=== PATIENT | female | born 1945 | race Caucasian/White ===

== ENCOUNTER → 2019-09-26 11:08 | Outpatient (CLI) | payer MEDICARE, OTHER, SELFPAY ==
--- NOTE | ~2019-09-26 | DEXA_ITS ---
Bone Density Report Name: Renea Garnett Age: 73 Sex: Female Ethnicity: White Date of : 1945 Indication: postmenopausal; screening for osteoporosis; hysterectomy; Referring Provider: CLINT, FLORESITA Study: Bone densitometry was performed. Exam Date: September 26, 2019 Accession number: [id number] Bone Density: Region BMD T-score Z-score Classification AP Spine (L1-L4) 1.061 0.1 2.5 Normal Femoral Neck (Left) 0.733 -1.0 1.0 Normal Total Hip (Left) 0.906 -0.3 1.4 Normal Femoral Neck (Right) 0.716 -1.2 0.8 Osteopenia Total Hip (Right) 0.849 -0.8 1.0 Normal Total Hip Mean 0.878 -0.6 1.2 Normal World Health Organization criteria for BMD impression classify patients as: Normal (T-score at or above -1.0), Osteopenia (T-score between -1.0 and -2.5), or Osteoporosis (T-score at or below -2.5). 10-year Fracture Risk(1): Major Osteoporotic Fracture 9.9% Hip Fracture 1.6% Reported Risk Factors: [place] (), Neck BMD=0.716, BMI=23.8 (1) FRAX(R) Version 3.08. Fracture probability calculated for an untreated patient. Fracture probability may be lower if the patient has received treatment. Previous Exams: Region Exam Age BMD T-score BMD Change BMD Change Date g/cm2 vs Baseline vs Previous AP Spine(L1-L4) 09/26/2019 73 1.061 0.1 -0.028* -0.011 05/27/2014 68 1.072 0.2 -0.017 0.012 05/12/2011 65 1.060 0.1 -0.029* 0.050* 06/19/2008 62 1.010 -0.3 -0.080* -0.080* 04/13/2005 59 1.089 0.4 Total Hip(Left) 09/26/2019 73 0.906 -0.3 -0.085* -0.023 05/27/2014 68 0.929 -0.1 -0.062* 0.003 05/12/2011 65 0.926 -0.1 -0.066* -0.037* 06/19/2008 62 0.963 0.2 -0.028* -0.028* 04/13/2005 59 0.991 0.4 Total Hip(Right) 09/26/2019 73 0.849 -0.8 -0.110* -0.068* 05/27/2014 68 0.917 -0.2 -0.042* 0.014 05/12/2011 65 0.903 -0.3 -0.056* -0.004 06/19/2008 62 0.907 -0.3 -0.052* -0.052* 04/13/2005 59 0.959 0.1 *Denotes significance at 95% confidence level, LSC for AP Spine = 0.022 g/cm2, LSC for Total Hip = 0.027 g/cm2 Clinical Information Provided by Patient: Has used the following medications: Vitamin D, Calcium Has the following medical conditions: Hysterectomy Patient maximum height was 67 Menopause Age: 50 Does not regularly consum
== END ==
PROVIDERS: Visit Provider Nurse Practitioner
DX: Z78.0 Asymptomatic menopausal state (principal); M85.851 Other specified disorders of bone density and structure, right thigh
CPT/HCPCS: 77080

== ENCOUNTER → 2019-11-06 12:21 | Outpatient (CLI) | payer MEDICARE, OTHER, SELFPAY ==
--- NOTE | ~2019-11-06 | MM_ITS ---
EXAMINATION: MM screening [facility] BI w nati HISTORY: Screening mammogram TECHNIQUE: Craniocaudal and mediolateral oblique 3-D tomosynthesis images were obtained and synthetic 2-D images were generated. CAD analysis was submitted and interpreted. COMPARISON: 06/15/2018, 06/10/2017, 06/08/2016 bilateral digital screening mammogram examinations BREAST PARENCHYMAL COMPOSITION: There are scattered areas of fibroglandular density. FINDINGS: There is no evidence of suspicious mass, calcification, or architectural distortion to sugg est malignancy in either breast. There has been no suspicious interval change. IMPRESSION: 1. No mammographic evidence of malignancy. 2. Recommend routine screening mammography in one year. BI-RADS Category 1: Negative Reviewed, dictated and finalized at location A.
== END ==
PROVIDERS: Visit Provider Nurse Practitioner
DX: Z12.31 Encounter for screening mammogram for malignant neoplasm of breast (principal)
CPT/HCPCS: 77063; 77067

== ENCOUNTER → 2020-10-24 11:04 | Outpatient (CLI) | payer MEDICARE, OTHER, SELFPAY ==
--- NOTE | ~2020-10-24 | US_ITS ---
EXAMINATION: US pelvic complete w TV DATE: 10/24/2020 11:30 INDICATION: Left lower quadrant mass seen on outside hospital CT TECHNIQUE: Multiple transabdominal and endovaginal sonographic images of the pelvis were obtained. COMPARISON: None. FINDINGS: The uterus is surgically absent. The right ovary is not visualized however no right adnexal abnormality is seen. The left ovary measures 6.4 x 4.3 x 4.8 cm. There are multiple cystic areas of the left ovary. Some appear to demonstrate internal solid components. There is normal vascular flow i n the left ovary. There is no free fluid in the pelvis. IMPRESSION: 1. Complex cystic lesion of the left adnexa which may be benign or malignant. Recommend surgical eval uation or further evaluation by MRI without and with contrast. Reviewed, dictated and finalized at location B. IMPRESSION: 1. Complex cystic lesion of the left adnexa which may be benign or malignant. R ecommend surgical evaluation or further evaluation by MRI without and with cont rast.
== END ==
PROVIDERS: Visit Provider Obstetrics & Gynecology Gynecology
DX: R19.04 Left lower quadrant abdominal swelling, mass and lump (principal)
CPT/HCPCS: 76830; 76856

== ENCOUNTER → 2020-11-06 10:02 | Outpatient (CLI) | payer MEDICARE, OTHER, SELFPAY ==
--- NOTE | ~2020-11-06 | MM_ITS ---
EXAMINATION: MM screening [facility] BI w nati HISTORY: Screening mammogram TECHNIQUE: Craniocaudal and mediolateral oblique 3-D tomosynthesis images were obtained and synthetic 2-D images were generated. CAD analysis was submitted and interpreted. COMPARISON: 11/06/2019, 06/15/2018, 06/10/2017 bilateral digital screening mammogram examinations BREAST PARENCHYMAL COMPOSITION: There are scattered areas of fibroglandular density. FINDINGS: There is no evidence of suspicious mass, calcification, or architectural distortion to sugg est malignancy in either breast. There has been no suspicious interval change. IMPRESSION: 1. No mammographic evidence of malignancy. 2. Recommend routine screening mammography in one year. BI-RADS Category 1: Negative Reviewed, dictated and finalized at location A.
== END ==
PROVIDERS: Visit Provider Nurse Practitioner
DX: Z12.31 Encounter for screening mammogram for malignant neoplasm of breast (principal)
CPT/HCPCS: 77063; 77067

== ENCOUNTER → 2020-11-21 10:11 | Outpatient (CLI) | payer MEDICARE, OTHER, SELFPAY ==
--- NOTE | ~2020-11-21 | US_ITS ---
EXAMINATION: US transvaginal DATE: 11/21/2020 10:39 INDICATION: Left ovarian cyst. TECHNIQUE: Multiple transvaginal sonographic images of the pelvis were obtained. COMPARISON: Ultrasound pelvis 10/24/2020 FINDINGS: The uterus is absent. There is no free fluid in the pelvis. The right ovary is not visualized. There is a 5.7 x 4.2 x 4.1 cm cystic and solid mass in left adnexa with multiple cysts measuring up to 2.9 cm. IMPRESSION: 1. 5.7 cm mixed cystic and solid mass in left adnexa, stable from 10/24/2020. This finding is suspicio us for neoplasm. Consider pelvis MRI without and with contrast or surgical evaluation. Reviewed, dictated and finalized at location A. IMPRESSION: 1. 5.7 cm mixed cystic and solid mass in left adnexa, stable from 10/24/2020. Th is finding is suspicious for neoplasm. Consider pelvis MRI without and with con trast or surgical evaluation.
== END ==
PROVIDERS: Visit Provider Obstetrics & Gynecology Gynecology
DX: N83.202 Unspecified ovarian cyst, left side (principal); N83.8 Other noninflammatory disorders of ovary, fallopian tube and broad ligament
CPT/HCPCS: 76830

== ENCOUNTER → 2021-11-13 12:32 | Outpatient (CLI) | payer MEDICARE, OTHER, SELFPAY ==
--- NOTE | ~2021-11-13 | MM_ITS ---
EXAMINATION: MM screening [facility] BI w nati HISTORY: Screening mammogram TECHNIQUE: Craniocaudal and mediolateral oblique 3-D tomosynthesis images were obtained and synthetic 2-D images were generated. CAD analysis was submitted and interpreted. COMPARISON: 11/06/2020, 11/06/2019, 06/15/2018 bilateral screening mammogram examinations BREAST PARENCHYMAL COMPOSITION: There are scattered areas of fibroglandular density. FINDINGS: There is no evidence of suspicious mass, calcification, or architectural distortion to sugg est malignancy in either breast. There has been no suspicious interval change. IMPRESSION: 1. No mammographic evidence of malignancy. 2. Recommend routine screening mammography in one year. BI-RADS Category 1: Negative Reviewed, dictated and finalized at location A.
== END ==
PROVIDERS: PCP Internal Medicine Rheumatology; Visit Provider Nurse Practitioner
DX: Z12.31 Encounter for screening mammogram for malignant neoplasm of breast (principal)
CPT/HCPCS: 77063; 77067

== ENCOUNTER → 2022-12-15 12:02 | Outpatient (CLI) | payer MEDICARE, OTHER, SELFPAY ==
--- NOTE | ~2022-12-15 | MM_ITS ---
EXAMINATION: MM screening [facility] BI w nati HISTORY: Screening mammogram TECHNIQUE: Craniocaudal and mediolateral oblique 3-D tomosynthesis images were obtained and synthetic 2-D images were generated. CAD analysis was submitted and interpreted. COMPARISON: 11/13/2021, 11/06/2020, 11/06/2019 BREAST PARENCHYMAL COMPOSITION: There are scattered areas of fibroglandular density. FINDINGS: No suspicious mass, calcification, or architectural distortion are identified in either alicia ast to suggest malignancy. There has been no suspicious interval change. IMPRESSION: 1. No mammographic evidence of malignancy. 2. Recommend routine screening mammography in one year. BI-RADS Category 1: Negative Reviewed, dictated and finalized at location A.
== END ==
PROVIDERS: PCP Internal Medicine Rheumatology; Visit Provider Nurse Practitioner
DX: Z12.31 Encounter for screening mammogram for malignant neoplasm of breast (principal)
CPT/HCPCS: 77063; 77067

== ENCOUNTER → 2023-02-24 13:18 | Outpatient (CLI) | payer MEDICARE, OTHER, SELFPAY ==
--- NOTE | ~2023-02-24 | DEXA_ITS ---
Bone Density Report Name: ERIC FUENTES Age: 77 Sex: Female Ethnicity: White Date of : 1945 Indication: postmenopausal; screening for osteoporosis; height loss; hysterectomy; Referring Provider: CLINT, FLORESITA Study: Bone densitometry was performed. Exam Date: February 24, 2023 Accession number: [id number] Bone Density: Region BMD T-score Z-score Classification AP Spine (L1-L4) 1.047 0.0 2.5 Normal Femoral Neck (Left) 0.721 -1.2 1.0 Osteopenia Total Hip (Left) 0.884 -0.5 1.4 Normal Femoral Neck (Right) 0.709 -1.3 0.9 Osteopenia Total Hip (Right) 0.832 -0.9 1.0 Normal Total Hip Mean 0.858 -0.7 1.2 Normal World Health Organization criteria for BMD impression classify patients as: Normal (T-score at or above -1.0), Osteopenia (T-score between -1.0 and -2.5), or Osteoporosis (T-score at or below -2.5). 10-year Fracture Risk(1): Major Osteoporotic Fracture 11% Hip Fracture 2.1% Reported Risk Factors: [place] (), Neck BMD=0.709, BMI=23.5 (1) FRAX(R) Version 3.08. Fracture probability calculated for an untreated patient. Fracture probability may be lower if the patient has received treatment. Previous Exams: Region Exam Age BMD T-score BMD Change BMD Change Date g/cm2 vs Baseline vs Previous AP Spine(L1-L4) 02/24/2023 77 1.047 0.0 -0.043* -0.015 09/26/2019 73 1.061 0.1 -0.028* -0.011 05/27/2014 68 1.072 0.2 -0.017 0.012 05/12/2011 65 1.060 0.1 -0.029* 0.050* 06/19/2008 62 1.010 -0.3 -0.080* -0.080* 04/13/2005 59 1.089 0.4 Total Hip(Left) 02/24/2023 77 0.884 -0.5 -0.107* -0.022 09/26/2019 73 0.906 -0.3 -0.085* -0.023 05/27/2014 68 0.929 -0.1 -0.062* 0.003 05/12/2011 65 0.926 -0.1 -0.066* -0.037* 06/19/2008 62 0.963 0.2 -0.028* -0.028* 04/13/2005 59 0.991 0.4 Total Hip(Right) 02/24/2023 77 0.832 -0.9 -0.127* -0.017 09/26/2019 73 0.849 -0.8 -0.110* -0.068* 05/27/2014 68 0.917 -0.2 -0.042* 0.014 05/12/2011 65 0.903 -0.3 -0.056* -0.004 06/19/2008 62 0.907 -0.3 -0.052* -0.052* 04/13/2005 59 0.959 0.1 *Denotes significance at 95% confidence level, LSC for AP Spine = 0.022 g/cm2, LSC for Total Hip = 0.027 g/cm2 Clinical Information Provided by Patient:
== END ==
PROVIDERS: PCP Internal Medicine Rheumatology; Visit Provider Nurse Practitioner
DX: Z78.0 Asymptomatic menopausal state (principal); M85.89 Other specified disorders of bone density and structure, multiple sites
CPT/HCPCS: 77080

== ENCOUNTER 2023-12-21 12:39 | Outpatient (CLI) | payer MEDICARE, OTHER, SELFPAY ==
--- NOTE | ~2023-12-21 | MM_ITS ---
EXAMINATION: MM screening [facility] BI w nati HISTORY: Screening TECHNIQUE: Craniocaudal and mediolateral oblique 3-D tomosynthesis images were obtained and synthetic 2-D images were generated. CAD analysis was submitted and interpreted. COMPARISON: Comparison to multiple prior studies sequentially, with oldest reviewed study dated 06/10. BREAST PARENCHYMAL COMPOSITION: Not dense: There are scattered areas of fibroglandular density. FINDINGS: There is no evidence of suspicious mass, calcification, or architectural distortion to sugg est malignancy in either breast. There has been no suspicious interval change. IMPRESSION: 1. No mammographic evidence of malignancy. 2. Recommend routine screening mammography in one year. BI-RADS Category 1: Negative Reviewed, dictated and finalized at location B. O NURSE
== END 2023-12-21 12:40 | disposition home or self-care (01) ==
LOC: MICIMG 12:41
PROVIDERS: PCP Nurse Practitioner; Visit Provider Nurse Practitioner
DX: Z12.31 Encounter for screening mammogram for malignant neoplasm of breast (principal)
CPT/HCPCS: 77063; 77067

== ENCOUNTER 2024-12-24 12:20 | Outpatient (CLI) | payer MEDICARE, OTHER, SELFPAY ==
--- NOTE | ~2024-12-24 | MM_ITS ---
EXAMINATION: MM screening [facility] BI w nati HISTORY: Screening TECHNIQUE: Craniocaudal and mediolateral oblique 3-D tomosynthesis images were obtained and synthetic 2-D images were generated. CAD analysis was submitted and interpreted. COMPARISON: Comparison to multiple prior studies sequentially, with oldest reviewed study dated 06/15/2018. BREAST PARENCHYMAL COMPOSITION: Not dense: There are scattered areas of fibroglandular density. FINDINGS: There is no evidence of suspicious mass, calcification, or architectural distortion to suggest malignancy in either breast. There has been no suspicious interval change. IMPRESSION: 1. No mammographic evidence of malignancy. 2. Recommend routine screening mammography in one year. BI-RADS Category 1: Negative Reviewed, dictated and finalized at location B. STANT DEAN
== END 2024-12-24 12:21 | disposition home or self-care (01) ==
LOC: MICIMG 12:22
DX: Z12.31 Encounter for screening mammogram for malignant neoplasm of breast (principal)
CPT/HCPCS: 77063; 77067

== ENCOUNTER 2025-02-06 13:17 | Emergency (ER) | payer MEDICARE, OTHER, SELFPAY ==
--- NOTE | 2025-02-06 13:23 | ED_ITS ---
HPI - URI/Sore Throat General Chief Complaint: Upper Respiratory Infection Stated Complaint: Body aches, Head ache Time Seen by Provider: 02/06/25 13:32 Source: patient, RN notes reviewed and old records reviewed Mode of arrival: ambulatory Limitations: no limitations History of Present Illness HPI Narrative: 79-year-old female presents to the [facility] with complaints of cough, body aches and headache that started yesterday, worse when she woke up this morning. Patient states that she went to a [employer] then came here to be evaluated. Patient reports that she did have her flu shot this past fall. Had taken Benadryl Related Data Home Medications ?Medication ?Instructions ?Recorded ?Confirmed ?Last Taken ?Type amiodarone 200 mg tablet mg 02/06/25 Unknown History ergocalciferol (vitamin D2) 1,250 02/06/25 Unknown H istory mcg (50,000 unit) capsule levothyroxine 50 mcg tablet mcg 02/06/25 Unknown Hist ory metoprolol tartrate 50 mg tablet mg 02/06/25 Unknown History rivaroxaban 20 mg tablet (Xarelto) mg 02/06/25 Unknow n History valsartan 80 mg tablet mg 02/06/25 Unknown History Allergies Allergy/AdvReac Type Severity Reaction Status Date / Time No Known Allergies Allergy Verified 02/06/25 13:45 Review of Systems Review of Systems: All systems reviewed & are unremarkable except as noted in HPI and below Constitutional: Constitutional: Reports as per HPI, Reports body ache(s) and Reports headache(s) ENT: Reports system reviewed and no additional complaints, except as documented Cardiovascular: Cardiovascular: Reports no additional cardiovascular complaints, Denies chest pain and Denies dyspnea Respiratory: Respiratory: Reports as per HPI, Denies chest congestion, Reports cough and Denies dyspnea Musculoskeletal: Musculoskeletal: Reports no additional musculoskeletal complaints Integumentary/Breasts: Skin/Breast: Reports system reviewed and no additional complaints, except as docu PMFSH Comments At the time of my signature, I reviewed and agree with the nursing past medical, surgical, social, and family history. There is no relevant family history pertinent to the patient complaint. Exam Const: General: cooperative, healthy appearing, comfortable, no acute distress, well developed, alert and well nourished Nutritional Appearance: well nourished Orientation/consciousness: patient oriented x3 Limitations: no limitations HENMT: Head: normal to inspection Ears: hearing grossly normal bilaterally, external ears normal, TM's normal bilaterally, EAC's normal, mastoids normal and no periauricular adenopathy Face and sinus: normal facial exam and face symmetric Mouth: Yes Normal oral and palatal mucosa present, Yes lip normal, Yes tongue normal and Yes moist mucous membranes Throat: posterior oropharynx normal, uvula midline and no uvular edema Eyes: General: appearance normal, both eyes and all related structures Alignment and Position: alignment normal Neck: Neck: normal visual inspection, full ROM, no lymphadenopathy and no meningeal signs Chest: Chest palpation & inspection: normal inspection of the chest Resp: Effort & Inspection: normal respiratory effort and able to speak in complete sentences Auscultation: clear to auscultation bilaterally, no crackles, no rales, no rhonchi and no wheezes Cardio: Rate: regular rate Skin: General skin exam: normal color and no rashes or lesions noted Neuro: General: patient oriented x3, gait normal, moves all extremities and no meningeal signs Cognition (Neuro): normal cognition Speech: normal speech Gait exam (Neuro): Normal gait present Extrem: General: normal to inspection, full ROM, capillary refill normal and normal gait Psych: Appearance: grossly normal and well kempt Mental Status: mental status grossly normal Speech and movement: Normal speech and movement present and Clear speech present Affect: normal affect Attitude: cooperative Course Course Level of Care: Express Care Visit Vital Signs Vital signs: Vital Signs Temperature 99.1 F 02/06/25 13:34 Pulse Rate 101 H 02/06/25 13:34 Respiratory Rate 18 02/06/25 13:34 Blood Pressure 136/76 02/06/25 13:34 Pulse Oximetry 99 02/06/25 13:34 Oxygen Delivery Room Air 02/06/25 13:34 Temperature 99.1 F 02/06/25 13:34 Pulse Rate 101 H 02/06/25 13:34 Respiratory Rate 18 02/06/25 13:34 Blood Pressure 136/76 02/06/25 13:34 Pulse Oximetry 99 02/06/25 13:34 Oxygen Delivery Room Air 02/06/25 13:34 reviewed MDM MDM Narrative Medical decision making narrative: Patient sitting in exam room. Patient is nontoxic, vitals stable. Patient with 1 day history of body aches, headache and a cough. No acute findings noted on exam. Patient is flu A positive. Patient is appropriate for outpatient treatment with close follow-up Discharge instructions reviewed with patient, as well as provided in writing per nursing staff. The instructions also include specific and strict return/GO TO THE ER as well as f/u information. All questions have been answered, and the patient deny any further questions with discharge and discharge plan. Some parts of this dictation were generated by voice recognition software and may contain typographical and/or grammatical inaccuracies. Differential Diagnosis Differential Diagnosis: Differential diagnostic considerations for upper respiratory infection include upper respiratory infection, croup, otitis media, sinusitis, viral infection, bronchitis, influenza, pharyngitis, strep, uvulitis.? Lab Data Labs: Lab Results 02/06/25 02/06/25 Range/Units 13:40 13:41 POC Influenza A Ag Positive (Negative) POC Influenza B Ag Negative (Negative) POC SARS CoV-2 Ag Negative (Negative) Reviewed Discharge Plan Discharge Clinical Impression: Influenza A Patient Disposition: Home Condition: Stable Instructions: Antibiotic Form, Influenza (ED) Additional Instructions: Your rapid COVID test were negative Your rapid flu test was positive for influenza A Your symptoms are due to a viral illness, which is not treated with antibiotics. Typically viral infections last 7-10 days, can linger for couple of weeks. It is very important to treat your symptoms. Drink plenty of water, Gatorade, Pedialyte, ice pops or Jell-O. -take Tylenol as needed for pain, fevers. -Antihistamine medication such as Zyrtec/Claritin during the day can help improve symptoms. -doing daily nasal irrigations can help relieve pressure your sinuses. Things like a Neti pot -Use Flonase twice a day for 5 days then daily to help reduce the inflammation and dry up your sinuses. -You can also use Coricidin HBP. Be sure to drink plenty of water with this medication at least 8 ounces with every dose and it is important to drink 8 to 10 glasses of water per day. Water is a natural decongestant -Eat and drink things that are easy to swallow, like tea or soup, or popsicles. -Oral rinses such as: Salt water gargles and/or may use topical anesthetic (eg. Chloraseptic spray) or lozenges to relieve dryness or throat pain). -Frequent hand washing or hand fire engineer is one of the best ways to prevent spread of infection. -Using a vaporizer or humidifier at night will also help thin secretions and help with coughing up phlegm. -Follow up with primary care provider in 7-10 days if condition is not improving - For new or worsening symptoms go directly to the nearest ER Patient Language: Kenyan Prescriptions: No Action amiodarone 200 mg tablet valsartan 80 mg tablet levothyroxine 50 mcg tablet metoprolol tartrate 50 mg tablet ergocalciferol (vitamin D2) 1,250 mcg (50,000 unit) capsule Xarelto 20 mg tablet Follow-up/Referrals: UNKNOWN,DOCTOR [Non-Staff] Time of Disposition: 13:41
[2025-02-06 13:34] VITALS: BP 136/76; PULSE 101; RESP 18; TEMP 37.3; O2SAT 99
[2025-02-06 13:42] LABS: EDCOVIDSCREEN Negative (Negative)
[2025-02-06 13:42] LABS: EDINFLUASCREEN Positive (Negative); EDINFLUBSCREEN Negative (Negative)
== END 2025-02-06 13:50 | disposition home or self-care (01) ==
PROVIDERS: Emergency Provider Nurse Practitioner
DX: J10.1 Influenza due to other identified influenza virus with other respiratory manifestations (principal); Z20.822 Contact with and (suspected) exposure to COVID-19; I10 Essential (primary) hypertension; E03.9 Hypothyroidism, unspecified; I48.91 Unspecified atrial fibrillation; Z79.01 Long term (current) use of anticoagulants
CPT/HCPCS: 87426; 87804; 99202; G0463